=== PATIENT | female | born 1960 | race Caucasian/White ===

== ENCOUNTER 2020-06-16 20:00 | Inpatient (IN) | payer MEDICARE ==
[2020-06-16] MEDS ORDERED: IPRATROPIUM/ALBUTEROL 3 ML NEB INH STA (20:13)
[2020-06-16] MEDS ORDERED: methylPREDNISolone SUCCINATE 125 MG/2 ML VIAL IVP STA (20:19)
--- NOTE | 2020-06-16 20:20 | ED Physician Documentation ---
PD HPI DYSPNEA - Stated complaint Stated Complaint: SOA - Chief complaint Chief Complaint: Resp - History obtained from History obtained from: Patient - Additional information Additional information: 59-year-old woman with "genetic" COPD but also a history of smoking presents with 3 days of increased shortness of breath, productive thick cough at the outset. Now cannot cough. At baseline she wears 3 L of oxygen at home. She also uses Spiriva and nebulizers. She is out of her Advair. She moved from [place] couple of months ago and has not set up primary care here yet. She denies pedal edema or calf pain. Review of Systems Ten Systems: 10 systems reviewed and negative Constitutional: denies: Fever, Chills Nose: denies: Rhinorrhea / runny nose, Congestion Throat: denies: Sore throat Cardiac: reports: Chest pain / pressure PD PAST MEDICAL HISTORY - Allergies Allergies/Adverse Reactions: Allergies Allergy/AdvReac Type Severity Reaction Status Date / Time No Known Drug Allergies Allergy Verified 06/16/20 20:03 PD ED PE NORMAL - Vitals Vital signs reviewed: Yes - General General: Alert and oriented X 3, Other (She appears breathless and tachypneic, she is breathing faster than the documented nursing notes of a respiratory rate of 20. Her sats are better than they were at triage.) - HEENT HEENT: PERRL, EOMI - Neck Neck: Supple, no meningeal sign, No bony TTP - Cardiac Cardiac: RRR, No murmur - Respiratory Respiratory: Other (Rhonchorous and wheezy throughout with moderate air motion and some tachypnea) - Abdomen Abdomen: Soft, Non tender - Back Back: No CVA TTP, No spinal TTP - Derm Derm: Normal color, Warm and dry - Extremities Extremities: No edema, No calf tenderness / cord - Neuro Neuro: Alert and oriented X 3, Normal speech Results - Vitals Vitals: Vital Signs - 24 hr 06/16/20 06/16/20 06/16/20 20:03 20:19 20:23 Temperature 36.5 C Heart Rate 61 115 H 116 H Respiratory 20 21 23 Rate Blood Pressure 150/100 H 147/102 H O2 Saturation 87 L 88 L 06/16/20 06/16/20 06/16/20 20:44 20:49 21:16 Temperature Heart Rate 115 H 117 H Respiratory 27 H 23 Rate Blood Pressure 138/102 H O2 Saturation 99 94 06/16/20 21:30 Temperature Heart Rate 116 H Respiratory 21 Rate Blood Pressure 130/106 H O2 Saturation 94 Oxygen O2 Source Nasal cannula Oxygen Flow Rate 6 - EKG (time done) 2022 Rate: Rate (enter#) (114) Rhythm: Sinus tachycardia [place]: Normal Intervals: Normal [place] Ischemia: Q waves (anterior), Non specific changes (inf/lat STD). No: ST elevation c/w ischemia Computer interpretation: Agree with computer - Labs Labs: Laboratory Tests 06/16/20 06/16/20 06/16/20 20:10 20:10 20:10 WBC 16.7 H RBC 4.99 Hgb 16.2 H Hct 49.6 H MCV 99.4 H MCH 32.5 H MCHC 32.7 RDW 12.6 Plt Count 492 H MPV 9.0 Neut # (Auto) 11.8 H Lymph # (Auto) 3.0 [place] # (Auto) 0.8 Eos # (Auto) 0.8 H Baso # (Auto) 0.2 H Absolute Nucleated RBC 0.00 Nucleated RBC % 0.0 Sodium Potassium Chloride Carbon Dioxide Anion Gap BUN Creatinine Estimated GFR (MDRD) Glucose Lactic Acid 1.1 Calcium Troponin I High Sens B-Natriuretic Peptide 30 Nasal Adenovirus (PCR) Nasal B. parapertussis DNA (PCR) Nasal Coronavir 229E PCR Nasal Coronavir HKU1 PCR Nasal Coronavir NL63 PCR Nasal Coronavir OC43 PCR Nasal Enterovir/Rhinovir PCR Nasal Influenza B PCR Nasal Influenza A PCR Nasal Parainfluen 1 PCR Nasal Parainfluen 2 PCR Nasal Parainfluen 3 PCR Nasal Parainfluen 4 PCR Nasal RSV (PCR) Nasal B.pertussis DNA PCR Nasal C.pneumoniae (PCR) Zeeshan Human Metapneumo PCR Nasal M.pneumoniae (PCR) Nasal SARS-CoV-2 (PCR) 06/16/20 06/16/20 06/16/20 20:10 20:10 21:05 WBC RBC Hgb Hct MCV MCH MCHC RDW Plt Count MPV Neut # (Auto) Lymph # (Auto) [place] # (Auto) Eos # (Auto) Baso # (Auto) Absolute Nucleated RBC Nucleated RBC % Sodium 138 Potassium 4.4 Chloride 97 L Carbon Dioxide 28 Anion Gap 13.0 BUN 10 Creatinine 0.6 Estimated GFR (MDRD) 102 Glucose 132 H Lactic Acid Calcium 9.8 Troponin I High Sens 6.4 B-Natriuretic Peptide Nasal Adenovirus (PCR) NOT DETECTED Nasal B. parapertussis DNA (PCR) NOT DETECTED Nasal Coronavir 229E PCR NOT DETECTED Nasal Coronavir HKU1 PCR NOT DETECTED Nasal Coronavir NL63 PCR NOT DETECTED Nasal Coronavir OC43 PCR NOT DETECTED Nasal Enterovir/Rhinovir PCR NOT DETECTED Nasal Influenza B PCR NOT DETECTED Nasal Influenza A PCR NOT DETECTED Nasal Parainfluen 1 PCR NOT DETECTED Nasal Parainfluen 2 PCR NOT DETECTED Nasal Parainfluen 3 PCR NOT DETECTED Nasal Parainfluen 4 PCR NOT DETECTED Nasal RSV (PCR) NOT DETECTED Nasal B.pertussis DNA PCR NOT DETECTED Nasal C.pneumoniae (PCR) NOT DETECTED Zeeshan Human Metapneumo PCR NOT DETECTED Nasal M.pneumoniae (PCR) NOT DETECTED Nasal SARS-CoV-2 (PCR) NOT DETECTED PD MEDICAL DECISION MAKING - ED course ED course: [employer] respiratory panel ordered to rapidly test specifically for COVID-19 in this patient who is expected to be hospitalized. Woman with COPD presents with an exacerbation of same. She is treated with serial nebs here, steroids. She improved somewhat but still appeared fairly breathless, tachycardic. Intermittently hypoxemic on increased oxygen over her baseline and Dr. Smith will admit. Departure - Departure Disposition: 66 [facility] DC/Xfer Clinical Impression: COPD exacerbation, Hypoxemia Condition: Serious
[2020-06-16 20:22] LABS: BASOPHILS # (AUTO) 0.2 10^3/uL (0.0-0.1); EOSINOPHILS # (AUTO) 0.8 10^3/uL (0.0-0.7); EOSINOPHILS % (AUTO) 4.7 %; HGB - HEMOGLOBIN 16.2 g/dL (12.0-16.0); LYMPHOCYTES % (AUTO) 18.3 %; MEAN CORPUSCULAR HEMOGLOBIN 32.5 pg (27.0-31.0); MEAN CORPUSCULAR HGB CONC 32.7 g/dL (32.0-36.0); MEAN CORPUSCULAR VOLUME 99.4 fL (81.0-99.0); MONOCYTES # (AUTO) 0.8 10^3/uL (0.0-1.0); MONOCYTES % (AUTO) 4.9 %; NEUTROPHILS # (AUTO) 11.8 10^3/uL (1.5-6.6); NEUTROPHILS % (AUTO) 70.7 %; PLT - PLATELET COUNT 492 10^3/uL (130-450); RED BLOOD COUNT 4.99 10^6/uL (4.20-5.40); RED CELL DISTRIBUTION WIDTH 12.6 % (12.0-15.0); WHITE BLOOD COUNT 16.7 x10^3/uL (4.8-10.8)
[2020-06-16] MEDS ORDERED: LEVALBUTEROL 1.25 MG/3 ML NEB INH STA (20:33)
--- NOTE | 2020-06-16 21:27 | XRAY Report ---
PROCEDURE: Chest 1 View X-Ray INDICATIONS: dyspnea TECHNIQUE: One view of the chest was acquired. COMPARISON: None. FINDINGS: Surgical changes and devices: None. Lungs and pleura: No pleural effusions or pneumothorax. Lungs are clear. Mediastinum: Prominent right hilum. Heart size is normal. Bones and chest wall: No suspicious bony lesions. Overlying soft tissues appear unremarkable. IMPRESSION: 1. No acute cardiopulmonary disease. 2. Prominent right hilum may be secondary to confluent central pulmonary vasculature, but right hilar adenopathy cannot be ruled out. A chest CT with contrast is suggested for follow-up. Reviewed by: Angelika Jordan MD on 06/16/2020 9:26 PM PST Approved by: Angelika Jordan MD on 06/16/2020 9:26 PM PST Station ID: [id number]
[2020-06-16] MEDS ORDERED: cefTRIAXone 1 GM VIAL IVP STA (21:35)
[2020-06-16] MEDS ORDERED: ACETAMINOPHEN 325 MG TABLET PO PRN (21:37)
[2020-06-16 21:50] LABS: CALCIUM 9.8 mg/dL (8.5-10.3); CREATININE 0.6 mg/dL (0.4-1.0)
[2020-06-16] MEDS ORDERED: IOVERSOL 320 100 ML VIAL IVP ONE ×2 (21:55→22:36)
--- NOTE | 2020-06-16 21:56 | HISTORY & PHYSICAL EXAMINATION ---
Chief Complaint - Chief Complaint Chief Complaint: cough, dyspnea History of Present Illness - Admitted From Admitted From:: [facility] ED - History Obtained From Records Reviewed: yes History obtained from: patient - History of Present Illness HPI Comment/Other: Patient is a 59-year-old female with medical history significant for alpha 1 antitrypsin, COPD, anxiety who presented to the ED with complaint of dyspnea which has been going on for the past 3 days. She checked her oxygen saturation at home and noted that it was 80 so she was brought and by her for evaluation and treatment. The patient is normally on 3 L of oxygen via nasal cannula at home. In the ED she required 6 L of oxygen to maintain her oxygen saturation at 88%. She was also tachypneic and tachycardic upon presentation. She was given 3 doses of breathing treatment and Solu-Medrol with little improvement. She and her recently moved to [facility] from [place] about 3 months ago. She ran out of her medications and has not been able to fill them because she has not yet established with a primary care physician in the area. She quit smoking but reported a history of about half a pack a day for 40+ years. She denied chest pain, abdominal pain, nausea, vomiting, fever or chills. However she has significant tightness/restriction to air movement and a significant wheeze History - Past Medical History Respiratory: reports: Asthma, COPD, Emphysema Psych: reports: Anxiety MRSA Hx?: No - Past Surgical History Ortho: reports: Hip replacement (right), Other - Family & Social History Family History Comment/Other: She has 3 sisters who all have asthma Living arrangement: At home Living Situation: With spouse/s.o. Social History Notes: Patient and her spouse recently moved to [facility] from [place] 3 months ago. She quit smoking but has 40+ year history of smoking half a pack per day. She rarely consumes alcohol and does not use any recreational substances. She is dependent for activities of daily living and gets around in the wheelchair since right hip fracture on January 23, 2020. - POLST Patient has POLST: No POLST Status: Full Code Meds/Allgy - Allergies Allergies/Adverse Reactions: Allergies Allergy/AdvReac Type Severity Reaction Status Date / Time No Known Drug Allergies Allergy Verified 06/16/20 20:03 Review of Systems - Constitutional Constitutional: denies: Fever, Chills, Weakness - Eyes Eyes: denies: Pain, Irritation, Vision loss - Ears, Nose & Throat Ears, Nose & Throat: denies: Sore throat - Cardiovascular Cariovascular: denies: Irregular heart rate, Chest pain, Edema, Lightheadedness, Syncope - Respiratory Respiratory: reports: Cough, Sputum production, Wheezing, SOB at rest - Gastrointestinal Gastrointestinal: denies: Abdominal pain, Abdominal distention, Constipation, Nausea, Vomiting, Reflux/heartburn - Genitourinary Genitourinary: denies: Dysuria, Frequency, Urgency, Hematuria - Musculoskeletal Musculoskeletal: denies: Muscle pain, Back pain, Muscle aches - Integumentary Integumentary: denies: Rash, Pruritis - Neurological Neurological: denies: General weakness, Focal weakness, Headache, Dizziness - Psychiatric Psychiatric: denies: Depression, Anxiety - Endocrine Endocrine: denies: Polyuria, Polydypsia - Hematologic/Lymphatic Hematologic/Lymphatic: denies: Anemia, Bruising, Petechiae Prior Level of Functionality: She is dependent for activities of daily living and gets around in the wheelchair since right hip fracture on January 23, 2020. Exam - Vital Signs Vital Signs: Vital Signs x48h Temp Pulse Resp BP Pulse Ox 06/16/20 21:16 94 06/16/20 20:49 117 H 23 138/102 H 99 06/16/20 20:44 115 H 27 H 06/16/20 20:23 116 H 23 06/16/20 20:19 115 H 21 147/102 H 88 L 06/16/20 20:03 36.5 C 61 20 150/100 H 87 L - Physical Exam General Appearance: positive: Alert, Mild distress Eyes Bilateral: positive: PERRL, EOMI ENT: positive: No signs of dehydration Neck: positive: No JVD, Trachea midline Respiratory: positive: Wheezes, Other (decreased air movement) Cardiovascular: positive: No murmur, Tachycardia Abdomen: positive: Non-tender, No organomegaly, Nml bowel sounds, No distention. negative: Guarding, Rebound Back: positive: Nml inspection Skin: positive: Color nml, No rash, Warm, Dry Extremities: positive: Non-tender, Full ROM, Nml appearance, No pedal edema Neurologic/Psychiatric: positive: Oriented x3 Conclusion/Plan - Problem List (1) COPD exacerbation Conclusion/Plan: Patient was given 3 breathing treatments in the ED. Patient also received Solu-Medrol 125 mg IV in the ED. We will continue Solu-Medrol 40 mg IV 3 times daily. DuoNeb every 4 hours as needed. Continue supplemental oxygen. Patient was given a dose of Rocephin in the ED. Azithromycin 500 mg IV daily x3 days. Covid 19 test pending. Due to prominent right hilum for which a right hilar adenopathy could not be ruled out and patient's history of smoking a CT of the chest with contrast has been ordered and is pending. (2) Leukocytosis Conclusion/Plan: Reactive versus infectious. Given that patient's white blood cell count was 16, patient was given a dose of Rocephin 1 g IV x1 in the ED. Azithromycin 500 mg IV daily x3 days ordered. Blood cultures pending. (3) Anxiety Conclusion/Plan: Ativan 0.5 mg p.o. every 6 hours as needed ordered - Lab Results Fish Bones: 06/16/20 20:10 06/16/20 20:10 Core Measures - Anticipated LOS I expect patient to be DC'd or transferred within 96 hours.: Yes - DVT/VTE - Prophylaxis VTE/DVT Device ordered at admit?: Yes VTE/DVT Prophylaxis med ordered at admit?: Yes
[2020-06-16 22:17] LABS: C. PNEUMONIAE- RESP PCR PANEL NOT DETECTED
[2020-06-17] MEDS: AZITHROMYCIN INJ 500 MG in SODIUM CHLORIDE 0.9% 250 ML IV SCH ×2 (00:34→08:18)
[2020-06-17] MEDS: SODIUM CHLORIDE FLUSH 0.9% 10 ML SYRINGE IVP SCH ×3 (00:34→21:45)
[2020-06-17] MEDS ORDERED: SODIUM CHLORIDE 0.9% 500 ML IV ONE (00:37)
[2020-06-17] MEDS: IPRATROPIUM/ALBUTEROL 3 ML NEB INH PRN ×2 (00:51→03:58)
[2020-06-17] MEDS: LORazepam 0.5 MG TABLET PO PRN ×3 (02:00→21:44)
[2020-06-17] MEDS: methylPREDNISolone SUCCINATE 40 MG/ML VIAL IVP SCH ×4 (03:02→21:44)
[2020-06-17] MEDS: MORPHINE 2 MG/ML CARPUJECT IVP PRN ×3 (03:34→22:32)
[2020-06-17] MEDS: SODIUM CHLORIDE FLUSH 0.9% 10 ML SYRINGE IVP PRN ×2 (03:35→06:21)
[2020-06-17 04:58] LABS: BASOPHILS % (AUTO) 0.3 %; EOSINOPHILS % (AUTO) 0.3 %; HGB - HEMOGLOBIN 13.8 g/dL (12.0-16.0); LYMPHOCYTES # (AUTO) 0.8 10^3/uL (1.5-3.5); LYMPHOCYTES % (AUTO) 19.5 %; MEAN CORPUSCULAR HEMOGLOBIN 31.7 pg (27.0-31.0); MEAN CORPUSCULAR HGB CONC 32.9 g/dL (32.0-36.0); MEAN CORPUSCULAR VOLUME 96.3 fL (81.0-99.0); MONOCYTES # (AUTO) 0.1 10^3/uL (0.0-1.0); MONOCYTES % (AUTO) 2.3 %; NEUTROPHILS # (AUTO) 3.1 10^3/uL (1.5-6.6); NEUTROPHILS % (AUTO) 77.3 %; PLT - PLATELET COUNT 361 10^3/uL (130-450); RED BLOOD COUNT 4.36 10^6/uL (4.20-5.40); RED CELL DISTRIBUTION WIDTH 12.5 % (12.0-15.0)
[2020-06-17 05:03] LABS: CALCIUM 9.8 mg/dL (8.5-10.3); CREATININE 0.5 mg/dL (0.4-1.0)
[2020-06-17] MEDS: PANTOPRAZOLE 40 MG TABLET PO SCH (06:20)
[2020-06-17] MEDS: BUDESONIDE 0.5 MG/2 ML NEB INH SCH ×2 (07:33→18:55)
[2020-06-17] MEDS: IPRATROPIUM/ALBUTEROL 3 ML NEB INH SCH ×4 (07:33→18:55)
[2020-06-17] MEDS: FORMOTEROL FUMARATE NEB 20 MCG/2 ML INH SCH ×2 (07:33→18:55)
[2020-06-17] MEDS: guaiFENesin 600 MG TABLET PO SCH ×2 (08:05→21:44)
[2020-06-17] MEDS: ENOXAPARIN 40 MG/0.4 ML SYRINGE SUBQ SCH (08:05)
[2020-06-17] MEDS ORDERED: SODIUM CHLORIDE 0.9% 250 ML IV ONE (08:23)
--- NOTE | 2020-06-17 08:37 | CT Report ---
PROCEDURE: CHEST W INDICATIONS: right hilar mass, dyspnea CONTRAST: IV CONTRAST: Optiray 320 ml: 100 PO CONTRAST: *NO PO CONTRAST TECHNIQUE: After the administration of intravenous contrast, 5 mm thick sections acquired from the pulmonary api oziel to the posterior costophrenic angles. 7 mm thick coronal MIP reformats were acquired. For radia tion dose reduction, the following was used: automated exposure control, adjustment of mA and/or kV according to patient size. COMPARISON: None. FINDINGS: Image quality: Excellent. Lungs and pleura: No acute air space opacities. Lung volumes are large, emphysema may be present. N o pleural effusions or pneumothorax. Central and peripheral airways are patent and normal in caliber . Mediastinum: Heart size is normal. No pericardial effusion. No mediastinal or hilar adenopathy by size criteria. Thoracic aorta and central pulmonary arteries are normal in size. Esophagus is yvette l in caliber. No hiatal hernia. Bones and chest wall: No suspicious bony lesions. No vertebral body compression fractures. No axil poonam or supraclavicular adenopathy by size criteria. Thyroid gland appears normal. Abdomen: Visualized upper abdominal solid organs appear normal except for presence of a single perip herally calcified moderate-sized gallstone within the gallbladder lumen.. Upper abdominal bowel loop s are normal in caliber. IMPRESSION: No pulmonary embolus or pneumonia found. Large lung volumes, suspect COPD. Single moderate sized tello pherally calcified gallstone within the gallbladder lumen, without evidence of acute gallbladder infl ammation or adjacent biliary obstruction. Reviewed by: Saman Landa MD on 06/17/2020 8:36 AM PST Approved by: Saman Landa MD on 06/17/2020 8:36 AM PST Station ID: [id number]
[2020-06-17] MEDS ORDERED: guaiFENesin/CODEINE 5 ML UDC PO PRN (10:40)
--- NOTE | 2020-06-17 14:47 | PHARMACY PROGRESS NOTE ---
- Best Possible Medication History Admit Date and Time: 06/16/202136 Processed by: Pharmacy Medication History completed: Yes Patient Interview: Completed Secondary Source(s): Physician records, Pharmacy records, Insurance records (PATIENT INTERVIEWED BY PHARMACY. PATIENT ABLE TO CONFIRM SOME HOME MEDICATIONS. PATIENT UNSURE OF CLONIDINE AND ATIVAN DOSE. ) As the person ultimately responsible for medication therapy, providers are able to order a medication from an existing home medication list in [facility] via the "Reconcile Routine" prior to Confirmation of that medication by contracting support specialist. Such practice is discouraged except when the physician, in their clinical judgment, deems that a medical need exists for a medication without regard to previous use.
--- NOTE | 2020-06-17 18:21 | PROVIDER PROGRESS NOTE ---
Assessment/Plan - Problem List (1) COPD exacerbation Assessment/Plan: She is improving rapidly. Continue with nebs, steroids, supplemental oxygen. Her O2 setting is already down to her baseline of 3 L continuously. If she is discharged tomorrow, she will need an oximetry walk test to determine if 3 L as the setting at rest and with activity or if it needs to be increased with activity. The patient is eager to be discharged tomorrow because she has her appointment with her PCP for the first time on Wednesday morning at 0900. (2) [id number] deficiency Assessment/Plan: As per history. She was on infusions for about 1 year, 10 years ago. After that her insurance would not cover the infusions and she could not pay for the very expense [id number] cost. 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 The boyfriend however had left the building and now has been let back in. I let him and the pt know know that he cannot go in and out. He will now leave "to do banking" and he knows he does not have permission to return. Patient understands this and thinks her anxiety is under control. - Current Meds Current Meds: Current Medications Generic Name Dose Route Start Last Admin Trade Name Freq PRN Reason Stop Dose Admin Albuterol/Ipratropium 3 ml 06/16/20 21:40 06/17/20 03:58 Ipratropium/Albuterol 3 Ml Neb INH 3 ml Q4HR PRN Administration Wheezing Albuterol/Ipratropium 3 ml 06/17/20 07:00 06/17/20 15:12 Ipratropium/Albuterol 3 Ml Neb INH 3 ml RTQID JENNIFER Administration Budesonide 0.5 mg 06/17/20 07:00 06/17/20 07:33 Budesonide 0.5 Mg/2 Ml Neb INH 0.5 mg RTBID JENNIFER Administration Enoxaparin Sodium 40 mg 06/17/20 09:00 06/17/20 08:05 Enoxaparin 40 Mg/0.4 Ml Syringe SUBQ 40 mg DAILY JENNIFER Administration Formoterol Fumarate 20 mcg 06/17/20 07:00 06/17/20 07:33 Formoterol Fumarate Neb 20 Mcg/2 Ml INH 20 mcg RTBID JENNIFER Administration Guaifenesin 600 mg 06/17/20 09:00 06/17/20 08:05 Guaifenesin 600 Mg Tablet PO 600 mg BID JENNIFER Administration Azithromycin 500 mg/ Sodium 250 mls @ 250 mls/hr 06/16/20 21:42 06/17/20 10:40 Chloride IV 06/18/20 09:59 Infused DAILY JENNIFER Infusion Lorazepam 0.5 mg 06/16/20 23:43 06/17/20 08:05 Lorazepam 0.5 Mg Tablet PO 0.5 mg Q6H PRN Administration Anxiety Methylprednisolone 40 mg 06/16/20 22:00 06/17/20 13:41 Methylprednisolone Succinate 40 Mg/Ml Vial IVP 40 mg TID JENNIFER Administration Morphine Sulfate 2 mg 06/17/20 00:56 06/17/20 11:48 Morphine 2 Mg/Ml Carpuject IVP 2 mg Q4HR PRN Administration Dyspnea Pantoprazole Sodium 40 mg 06/17/20 07:00 06/17/20 06:20 Pantoprazole 40 Mg Tablet PO 40 mg QDAC JENNIFER Administration Sodium Chloride 10 ml 06/16/20 21:37 06/17/20 06:21 Sodium Chloride Flush 0.9% 10 Ml Syringe IVP 10 ml PRN PRN Administration NEEDED PER PROVIDER ORDERS Sodium Chloride 10 ml 06/17/20 01:00 06/17/20 08:19 Sodium Chloride Flush 0.9% 10 Ml Syringe IVP 10 ml 0100,0900,1700 JENNIFER Administration - Lab Result Fish Bone Diagrams: 06/17/20 04:46 06/17/20 04:46 - Additional Planning My Orders: My Active Orders 06/17/20 Evaluate and Treat OT [OT] Routine Evaluate and Treat PT [PT] Routine 06/17/20 10:40 guaiFENesin/CODEINE [Robitussin AC] 5 ml PO Q6HR PRN Subjective - Subjective Patient Reports: Feeling Better, Shortness of Breath (She was short of breath with activity but no longer short of breath at rest) Objective Vital Signs: Vital Signs - 24 hr 0106/16/20 06/16/20 20:03 20:19 20:23 Temperature 36.5 C Heart Rate 61 115 H 116 H Heart Rate [ Brachial] Heart Rate [ Sitting] Heart Rate [ Supine] Respiratory 20 21 23 Rate Blood Pressure 150/100 H 147/102 H Blood Pressure [Right Brachial artery] Blood Pressure [Sitting] Blood Pressure [Supine] O2 Saturation 87 L 88 L 06/16/20 06/16/20 06/16/20 20:44 20:49 21:16 Temperature Heart Rate 115 H 117 H Heart Rate [ Brachial] Heart Rate [ Sitting] Heart Rate [ Supine] Respiratory 27 H 23 Rate Blood Pressure 138/102 H Blood Pressure [Right Brachial artery] Blood Pressure [Sitting] Blood Pressure [Supine] O2 Saturation 99 94 06/16/20 06/16/20 06/16/20 21:30 21:54 22:00 Temperature 36.5 C Heart Rate 116 H 124 H 123 H Heart Rate [ Brachial] Heart Rate [ Sitting] Heart Rate [ Supine] Respiratory 21 23 27 H Rate Blood Pressure 130/106 H 130/101 H 133/106 H Blood Pressure [Right Brachial artery] Blood Pressure [Sitting] Blood Pressure [Supine] O2 Saturation 94 91 L 93 06/16/20 06/16/20 06/17/20 22:40 23:00 00:55 Temperature 37.0 C 36.4 C L 36.4 C L Heart Rate 110 H 105 H Heart Rate [ 110 H Brachial] Heart Rate [ Sitting] Heart Rate [ Supine] Respiratory 26 H 24 20 Rate Blood Pressure 127/89 H Blood Pressure 123/92 H [Right Brachial artery] Blood Pressure [Sitting] Blood Pressure [Supine] O2 Saturation 98 94 95 06/17/20 06/17/20 06/17/20 04:00 04:09 07:45 Temperature 36.6 C Heart Rate 94 90 Heart Rate [ 95 Brachial] Heart Rate [ Sitting] Heart Rate [ Supine] Respiratory 18 24 18 Rate Blood Pressure Blood Pressure 112/67 [Right Brachial artery] Blood Pressure [Sitting] Blood Pressure [Supine] O2 Saturation 95 06/17/20 06/17/20 06/17/20 07:54 11:40 11:47 Temperature 97.2 C H 36.8 C Heart Rate 88 Heart Rate [ 86 84 Brachial] Heart Rate [ Sitting] Heart Rate [ Supine] Respiratory 22 22 18 Rate Blood Pressure Blood Pressure 117/73 108/76 [Right Brachial artery] Blood Pressure [Sitting] Blood Pressure [Supine] O2 Saturation 94 96 06/17/20 06/17/20 06/17/20 12:20 12:25 15:17 Temperature Heart Rate 92 Heart Rate [ Brachial] Heart Rate [ 99 99 Sitting] Heart Rate [ 96 96 Supine] Respiratory 18 Rate Blood Pressure Blood Pressure [Right Brachial artery] Blood Pressure 106/79 106/79 [Sitting] Blood Pressure 111/73 111/73 [Supine] O2 Saturation 06/17/20 16:42 Temperature 36.5 C Heart Rate Heart Rate [ 89 Brachial] Heart Rate [ Sitting] Heart Rate [ Supine] Respiratory 24 Rate Blood Pressure Blood Pressure 110/69 [Right Brachial artery] Blood Pressure [Sitting] Blood Pressure [Supine] O2 Saturation 94 Oxygen O2 Source Nasal cannula Oxygen Flow Rate 6 I&O (Last 24 Hrs): Intake and Output Totals x24h 06/15/20 06/16/20 06/17/20 23:59 23:59 23:59 Intake Total 1940 Output Total 200 Balance 1740 General: Alert, Oriented x3 HEENT: EOMI, Mucous membr. moist/pink, Other (Mostly edentulous. Wearing O2 per nasal cannula) Neck: Supple, No JVD Neuro: Alert, Non Focal Cardiovascular: Regular rate, Normal S1, Normal S2, No murmurs Respiratory: No respiratory distress, Wheezes, Other (Prolonged expiratory phase) Abdomen: Normal bowel sounds, Soft Extremities: No edema - Results Results: Laboratory Results WBC 4.0 x10^3/uL (4.8-10.8) L 06/17/20 04:46 RBC 4.36 10^6/uL (4.20-5.40) 06/17/20 04:46 Hgb 13.8 g/dL (12.0-16.0) 06/17/20 04:46 Hct 42.0 % (37.0-47.0) 06/17/20 04:46 MCV 96.3 fL (81.0-99.0) 06/17/20 04:46 MCH 31.7 pg (27.0-31.0) H 06/17/20 04:46 MCHC 32.9 g/dL (32.0-36.0) 06/17/20 04:46 RDW 12.5 % (12.0-15.0) 06/17/20 04:46 Plt Count 361 10^3/uL (130-450) 06/17/20 04:46 MPV 9.0 fL (7.9-10.8) 06/17/20 04:46 Neut # (Auto) 3.1 10^3/uL (1.5-6.6) 06/17/20 04:46 Lymph # (Auto) 0.8 10^3/uL (1.5-3.5) L 06/17/20 04:46 [place] # (Auto) 0.1 10^3/uL (0.0-1.0) 06/17/20 04:46 Eos # (Auto) 0.0 10^3/uL (0.0-0.7) 06/17/20 04:46 Baso # (Auto) 0.0 10^3/uL (0.0-0.1) 06/17/20 04:46 Absolute Nucleated RBC 0.00 x10^3/uL 06/17/20 04:46 Nucleated RBC % 0.0 /100WBC 06/17/20 04:46 Sodium 135 mmol/L (135-145) 06/17/20 04:46 Potassium 4.0 mmol/L (3.5-5.0) 06/17/20 04:46 Chloride 100 mmol/L (101-111) L 06/17/20 04:46 Carbon Dioxide 25 mmol/L (21-32) 06/17/20 04:46 Anion Gap 10.0 (6-13) 06/17/20 04:46 BUN 10 mg/dL (6-20) 06/17/20 04:46 Creatinine 0.5 mg/dL (0.4-1.0) 06/17/20 04:46 Estimated GFR (MDRD) 125 (>89) 06/17/20 04:46 Glucose 128 mg/dL (70-100) H 06/17/20 04:46 Lactic Acid 1.1 mmol/L (0.5-2.2) 06/16/20 20:10 Calcium 9.8 mg/dL (8.5-10.3) 06/17/20 04:46 Troponin I High Sens 6.4 ng/L (2.3-14.8) 06/16/20 20:10 B-Natriuretic Peptide 30 pg/mL (5-100) 06/16/20 20:10 Nasal Adenovirus (PCR) NOT DETECTED 06/16/20 21:05 Nasal B. parapertussis DNA (PCR) NOT DETECTED 06/16/20 21:05 Nasal Coronavir 229E PCR NOT DETECTED 06/16/20 21:05 Nasal Coronavir HKU1 PCR NOT DETECTED 06/16/20 21:05 Nasal Coronavir NL63 PCR NOT DETECTED 06/16/20 21:05 Nasal Coronavir OC43 PCR NOT DETECTED 06/16/20 21:05 Nasal Enterovir/Rhinovir PCR NOT DETECTED 06/16/20 21:05 Nasal Influenza B PCR NOT DETECTED 06/16/20 21:05 Nasal Influenza A PCR NOT DETECTED 06/16/20 21:05 Nasal Parainfluen 1 PCR NOT DETECTED 06/16/20 21:05 Nasal Parainfluen 2 PCR NOT DETECTED 06/16/20 21:05 Nasal Parainfluen 3 PCR NOT DETECTED 06/16/20 21:05 Nasal Parainfluen 4 PCR NOT DETECTED 06/16/20 21:05 Nasal RSV (PCR) NOT DETECTED 06/16/20 21:05 Nasal B.pertussis DNA PCR NOT DETECTED 06/16/20 21:05 Nasal C.pneumoniae (PCR) NOT DETECTED 06/16/20 21:05 Zeeshan Human Metapneumo PCR NOT DETECTED 06/16/20 21:05 Nasal M.pneumoniae (PCR) NOT DETECTED 06/16/20 21:05 Nasal SARS-CoV-2 (PCR) NOT DETECTED 06/16/20 21:05
[2020-06-18] MEDS: SODIUM CHLORIDE FLUSH 0.9% 10 ML SYRINGE IVP SCH ×2 (00:46→06:01)
[2020-06-18 05:49] LABS: BASOPHILS % (AUTO) 0.2 %; HGB - HEMOGLOBIN 13.1 g/dL (12.0-16.0); LYMPHOCYTES # (AUTO) 1.6 10^3/uL (1.5-3.5); LYMPHOCYTES % (AUTO) 23.9 %; MEAN CORPUSCULAR HEMOGLOBIN 32.4 pg (27.0-31.0); MEAN CORPUSCULAR HGB CONC 33.6 g/dL (32.0-36.0); MEAN CORPUSCULAR VOLUME 96.5 fL (81.0-99.0); MEAN PLATELET VOLUME 9.1 fL (7.9-10.8); MONOCYTES # (AUTO) 0.4 10^3/uL (0.0-1.0); MONOCYTES % (AUTO) 5.4 %; NEUTROPHILS # (AUTO) 4.6 10^3/uL (1.5-6.6); NEUTROPHILS % (AUTO) 70.2 %; PLT - PLATELET COUNT 331 10^3/uL (130-450); RED BLOOD COUNT 4.04 10^6/uL (4.20-5.40); RED CELL DISTRIBUTION WIDTH 12.8 % (12.0-15.0); WHITE BLOOD COUNT 6.5 x10^3/uL (4.8-10.8)
[2020-06-18 05:59] LABS: CREATININE 0.5 mg/dL (0.4-1.0)
[2020-06-18] MEDS: methylPREDNISolone SUCCINATE 40 MG/ML VIAL IVP SCH (06:01)
[2020-06-18] MEDS: PANTOPRAZOLE 40 MG TABLET PO SCH (06:01)
[2020-06-18] MEDS: IPRATROPIUM/ALBUTEROL 3 ML NEB INH SCH ×2 (06:28→11:40)
[2020-06-18] MEDS: FORMOTEROL FUMARATE NEB 20 MCG/2 ML INH SCH (06:28)
[2020-06-18] MEDS: BUDESONIDE 0.5 MG/2 ML NEB INH SCH (06:28)
[2020-06-18] MEDS: guaiFENesin 600 MG TABLET PO SCH (09:56)
[2020-06-18] MEDS: AZITHROMYCIN INJ 500 MG in SODIUM CHLORIDE 0.9% 250 ML IV SCH (09:57)
[2020-06-18] MEDS: ENOXAPARIN 40 MG/0.4 ML SYRINGE SUBQ SCH (09:58)
--- NOTE | 2020-06-18 11:16 | Discharge Plan ---
Discharge Plan Problem Reviewed?: Yes Disposition: Home, Self Care Condition: Fair Prescriptions: LORazepam [Ativan] 0.5 mg PO DAILY PRN #30 tab PRN Reason: Anxiety cloNIDine [Catapres] 0.1 mg PO DAILY PRN #30 tab PRN Reason: Anxiety predniSONE [Deltasone] 20 mg PO DAILY #100 tab Fluticasone 110 Mcg [Flovent] 1 puffs INH DAILY #1 gm Esomeprazole Magnesium [Nexium] 40 mg PO DAILY #30 cap Albuterol Sulfate [Proair Hfa Inhaler] 2 puffs INH Q6H PRN #2 gm PRN Reason: Shortness Of Air/Wheezing Diet: Regular Activity Restrictions: Activity as Tolerated Shower Restrictions: No Driving Restrictions: No Health Concerns: You have a long history of COPD and you are already on 3 L of oxygen at home. You presented to our emergency room with 3 days of cough, shortness of breath and your oxygen saturations were quite low. In spite of getting nebulizers and steroids in the emergency room you got worse, and as such she placed in the hospital to treat. You shared with us that you have actually run out of your medications and moving from [place] to here. We discussed which pharmacy to send prescriptions to and [place] To our knowledge [facility] is so we have sent you refills to [facility]. Plan of Treatment: 1. You will establish yourself with a primary care provider. You have an appointment tomorrow. 2. I have refilled all of your medications and sent them to [facility] 3. You would be a candidate for cardiopulmonary rehab to help you improve your strength and endurance. I will make that referral and hope to follow through. Care Goals: To not come into the hospital or into the emergency room and to remain stable with your disease Assessment: Patient will follow through Follow-Up Care: [facility] No Smoking: If you smoke, Please STOP! Call for help.
[2020-06-18 12:15] VITALS: BP 130/77
--- NOTE | 2020-06-18 17:08 | DISCHARGE SUMMARY ---
Discharge Summary Admit Date: 06/16/20 Discharge Date: 06/18/20 Discharging Provider: Nataliya Erazo MD Code Status: Attempt Resuscitation Condition at Discharge: Fair Discharge Disposition: 01 Home, Self Care - DIAGNOSES Discharge Diagnoses with Status of Each Condition: 1. COPD exacerbation 2. Alpha-1 antitrypsin deficiency 3. Leukocytosis 4. Generalized anxiety disorder 5. Noncompliance with medication 6. Left hip pain 7. History of left hip repair January 2020 - HPI History of Present Illness: Patient is a 59-year-old female with medical history significant for alpha 1 antitrypsin, COPD, anxiety who presented to the ED with complaint of dyspnea which has been going on for the past 3 days. She checked her oxygen saturation at home and noted that it was 80 so she was brought and by her for evaluation and treatment. The patient is normally on 3 L of oxygen via nasal cannula at home. In the ED she required 6 L of oxygen to maintain her oxygen saturation at 88%. She was also tachypneic and tachycardic upon presentation. She was given 3 doses of breathing treatment and Solu-Medrol with little improvement. She and her recently moved to [facility] from [place] about 3 months ago. She ran out of her medications and has not been able to fill them because she has not yet established with a primary care physician in the area. She quit smoking but reported a history of about half a pack a day for 40+ years. She denied chest pain, abdominal pain, nausea, vomiting, fever or chills. However she has significant tightness/restriction to air movement and a significant wheeze History - Past Medical History Respiratory: reports: Asthma, COPD, Emphysema Psych: reports: Anxiety MRSA Hx?: No - Past Surgical History Ortho: reports: Hip replacement (right), Other - CONSULTS | PROCEDURES Procedures: 1. Chest x-ray with no acute cardiopulmonary disease. Prominent right hilum secondary to confluence central pulmonary vasculature but right hilar adenopathy could not be ruled out so CT was recommended. 2. CT of chest with no acute airspace opacities. Lung volumes are large with emphysema present. Normal heart size. No hilar adenopathy. Visualized upper abdominal solid organs were normal except for the presence of a single peripherally calcified moderate-sized gallstone. - HOSPITAL COURSE Hospital Course: The patient shared with us that she has been running low on her nebulizers, and metered-dose inhalers. She moved here from [place] 3 months ago. It took her quite a bit of time to find a primary care provider and in the meantime is run out of all of her medications except her inhaled Flovent. She has been without her bronchodilators for probably 3 days. She presented a COPD exacerbation. No pneumonia. She was very anxious and requested that we make sure that we gave her her clonidine and Ativan. After being stabilized on steroids, nebulizers, she felt stable enough to return home. She has a primary care provider visit scheduled for tomorrow. She will be seeing [facility] clinic. Dr. Servando Shcultz. During her stay it was noted that she has been using a wheelchair because of chronic left hip pain. She states that she fell and broke her hip last summer. She has been in a wheelchair, not really ambulating normally since that time because "the surgeon told me to". I spoke to Dr. Dean's office at [facility]. His phone number was [phone]. Unfortunately he was in the OR all day today but his physicians financial planning assistant answer the phone and reviewed the records. The patient fell and broke her hip and had a hip repair. She was seen for her first postoperative visit at the appropriate time where sutures were removed, bandages removed, and she was to be weightbearing as tolerated. She was supposed to be seen again 4 weeks later to get a repeat film and then be cleared. She never kept her follow-up appointment. As such this patient has been almost nonweightbearing without realizing that she had no restrictions. She needed to follow through with physical therapy.I then tried to call her at her home phone that was in our database. It was the wrong phone number. I called [facility] pharmacy in [facility] was able to give me the correct phone number of [phone]. She will need to follow-up with her primary care provider about all of her medicines, and he needs to order a left hip film. He then needs to refer her to orthopedic surgery and follow-up here [place] the [place]. Once orthopedic surgery sees the film, reviewed her case, then she can be released to full weightbearing status depending on his findings. After receiving steroids and nebulizers, she gradually improved. She felt like she was back at baseline. She is usually on 3 L of nasal cannula oxygen at home, was actually down to 2 L by the time of discharge.Greater than 30 minutes was spent coordinating discharge. She feels stable enough to return to home. She is asking that we provide her with refills. I did explain we can give her enough for a few days, and then her primary care provider will give her longer term refills. Discharge exam had a temperature 36.5, pulse 88, blood pressure 130/77, respirations 20 and she is 93% on 3 L. She sometimes goes up to 100% on 3 L. She is a thin woman. 5 foot 6 inches tall and weighing 63.5 kg. Bilateral temporal wasting. Neck is supple, no JVD. Lungs have severe prolonged and exhalation with an occasional faint wheeze at the end of breathing. But no increased respiratory effort, no use of accessory muscles. That is unless she has to get up to walk to the bathroom where she is very tachypneic. It takes her about 3 minutes to stabilize. She feels this is her baseline and is insistent that this is stable for her. PMI is normally placed. She also does have a right ventricular lift. Systolic ejection murmur. Abdomen is nontender, normal bowel sounds. No leg edema. In seeing Dr. Servando Schultz tomorrow: 1. Medications need to be refilled 2. She is on Nexium which is brand name. Please consider changing her to Protonix or Prilosec or stopping it altogether after a taper 3. Refer to cardiopulmonary rehab 4. Check hip film and refer to orthopedics to then allow her to do rehab to get out of the wheelchair and decrease walker use - ALLERGIES Allergies/Adverse Reactions: Allergies Allergy/AdvReac Type Severity Reaction Status Date / Time No Known Drug Allergies Allergy Verified 06/16/20 20:03 - MEDICATIONS Home Medications: Ambulatory Orders Medication Instructions Recorded Confirmed Albuterol Sulfate [Proair Hfa 2 puffs INH Q6H PRN #2 gm 06/18/20 Inhaler] Esomeprazole Magnesium [Nexium] 40 mg PO DAILY #30 cap 06/18/20 Fluticasone 110 Mcg [Flovent] 1 puffs INH DAILY #1 gm 06/18/20 Ipratropium/Albuterol [Duoneb] 3 ml INH RTQID neb 06/18/20 LORazepam [Ativan] 0.5 mg PO DAILY PRN #30 tab 06/18/20 cloNIDine [Catapres] 0.1 mg PO DAILY PRN #30 tab 06/18/20 predniSONE [Deltasone] 20 mg PO DAILY #100 tab 06/18/20 - LABS Result Diagrams: 06/18/20 05:30 06/18/20 05:30
== END 2020-06-18 12:24 | disposition home or self-care (01) | DRG 192 ==
LOC: ED 20:00 → MS2 21:37
PROVIDERS: ADMIT Internal Medicine; ATTEND Specialist
DX: J43.9 Emphysema, unspecified (principal); E88.01 Alpha-1-antitrypsin deficiency; F41.1 Generalized anxiety disorder; D72.829 Elevated white blood cell count, unspecified; M25.552 Pain in left hip; Z74.09 Other reduced mobility; J44.1 Chronic obstructive pulmonary disease with (acute) exacerbation; R09.02 Hypoxemia; Z99.81 Dependence on supplemental oxygen; T48.6X6A Underdosing of antiasthmatics, initial encounter; Y92.009 Unspecified place in unspecified non-institutional (private) residence as the place of occurrence of the external cause; Z91.128 Patient's intentional underdosing of medication regimen for other reason; Z20.828 Contact with and (suspected) exposure to other viral communicable diseases; Z79.51 Long term (current) use of inhaled steroids; Z87.891 Personal history of nicotine dependence
CPT/HCPCS: 36415; 71045; 71260; 80048; 83605; 83880; 84484; 85025; 87040; 87631; 93005; 94640; 96374; 97161; 97165; 99285; A9270; J1650; J7626; Q9967; 0202U

== ENCOUNTER 2021-05-25 10:19 | Emergency (ER) | payer MEDICAID, MEDICARE ==
[2021-05-25] MEDS ORDERED: IPRATROPIUM/ALBUTEROL 3 ML NEB INH ONE (11:46)
[2021-05-25] MEDS ORDERED: IPRATROPIUM/ALBUTEROL 3 ML NEB INH STA (11:46)
--- NOTE | 2021-05-25 12:04 | XRAY Report ---
PROCEDURE: Chest 1 View X-Ray INDICATIONS: SOB TECHNIQUE: One view of the chest was acquired. COMPARISON: 06/16/2020 chest x-ray FINDINGS: Surgical changes and devices: None. Lungs and pleura: No pleural effusions or pneumothorax. Lungs are clear. Mediastinum: Mediastinal contours appear normal. Heart size is normal. Bones and chest wall: No suspicious bony lesions. Overlying soft tissues appear unremarkable. IMPRESSION: No acute process. Reviewed by: Manuel Abdalla MD on 05/25/2021 11:03 AM [facility] Approved by: Manuel Abdalla MD on 05/25/2021 11:03 AM [facility] Station ID: [id number]
[2021-05-25] MEDS ORDERED: DOXYCYCLINE 100 MG TABLET PO STA (12:06)
[2021-05-25] MEDS ORDERED: LEVALBUTEROL 1.25 MG/3 ML NEB INH STA (12:06)
[2021-05-25] MEDS ORDERED: predniSONE 20 MG TABLET PO STA (12:06)
--- NOTE | 2021-05-25 12:08 | ED Physician Documentation ---
PD HPI DYSPNEA - Stated complaint Stated Complaint: CANT BREATHE - Chief complaint Chief Complaint: Resp - History obtained from History obtained from: Patient - Additional information Additional information: 60-year-old woman with history of alpha-1 antitrypsin magnus deficiency causing asthma/COPD presents with an exacerbation starting after getting a cold about a week ago. She had a low-grade fever at the time but not since. She feels like she needs some steroids and is quite short of breath. No recent fevers. Her cough is productive of initially clear now milky sputum. Review of Systems Constitutional: reports: Fever, Fatigue. denies: Chills Nose: reports: Rhinorrhea / runny nose Throat: denies: Sore throat Cardiac: denies: Chest pain / pressure, Palpitations Respiratory: reports: Dyspnea, Cough PD PAST MEDICAL HISTORY - Past Medical History Respiratory: Asthma, COPD, Emphysema : Incontinence Psych: Anxiety - Past Surgical History Past Surgical History: Yes Ortho: Hip replacement, Other - Present Medications Home Medications: Ambulatory Orders Medication Instructions Recorded Confirmed Albuterol Sulfate [Proair Hfa 2 puffs INH Q6H PRN #2 gm 06/18/20 Inhaler] Esomeprazole Magnesium [Nexium] 40 mg PO DAILY #30 cap 06/18/20 Fluticasone 110 Mcg [Flovent] 1 puffs INH DAILY #1 gm 06/18/20 Ipratropium/Albuterol [Duoneb] 3 ml INH RTQID neb 06/18/20 LORazepam [Ativan] 0.5 mg PO DAILY PRN #30 tab 06/18/20 cloNIDine [Catapres] 0.1 mg PO DAILY PRN #30 tab 06/18/20 predniSONE [Deltasone] 20 mg PO DAILY #100 tab 06/18/20 predniSONE [Deltasone] 20 mg PO [id number] #21 tab 05/25/21 predniSONE [Deltasone] 20 mg PO [id number] #21 tab 05/25/21 - Allergies Allergies/Adverse Reactions: Allergies Allergy/AdvReac Type Severity Reaction Status Date / Time No Known Drug Allergies Allergy Verified 05/25/21 10:33 - Social History Does the pt smoke?: No Smoking Status: Never smoker Does the pt have substance abuse?: No - Immunizations Immunizations are current?: Yes - POLST Patient has POLST: No POLST Status: Full Code PD ED PE NORMAL - Vitals Vital signs reviewed: Yes - General General: Alert and oriented X 3, Other (She is tachypneic with labored breathing and speaking in shortened sentences.) - Neck Neck: Supple, no meningeal sign, No bony TTP - Cardiac Cardiac: RRR (Tachycardic), No murmur - Respiratory Respiratory: Other (Tachypneic, breathing and short sentences, moderate air motion with inspiratory and expiratory wheezing.) - Abdomen Abdomen: Soft, Non tender - Back Back: No CVA TTP, No spinal TTP - Derm Derm: Normal color, Warm and dry - Neuro Neuro: Alert and oriented X 3, Normal speech Results - Vitals Vitals: Vital Signs - 24 hr 05/25/21 05/25/21 05/25/21 10:29 10:40 11:47 Temperature 36.5 C Heart Rate 99 99 90 Respiratory 24 26 H 26 H Rate Blood Pressure 137/80 H 137/80 H O2 Saturation 94 100 05/25/21 05/25/21 05/25/21 12:20 12:39 14:00 Temperature Heart Rate 90 105 H 75 Respiratory 22 26 H 18 Rate Blood Pressure 120/88 H 112/80 O2 Saturation 97 99 Oxygen O2 Source Nasal cannula Oxygen Flow Rate 2 PD MEDICAL DECISION MAKING - ED course ED course: 60-year-old woman with alpha-1 antitrypsin magnus associated COPD presents with an exacerbation of same. She was admitted doxycycline, and prednisone here with improvement. Also 3 nebs. She was still a bit labored and I offered admission which she declined. Departure - Departure Disposition: 01 Home, Self Care Clinical Impression: COPD exacerbation, [id number] deficiency Condition: Good Record reviewed to determine appropriate education?: Yes Instructions: COPD Dc Prescriptions: predniSONE [Deltasone] 20 mg PO [id number] #21 tab predniSONE [Deltasone] 20 mg PO [id number] #21 tab Comments: Call your doctor to arrange a follow-up appointment, make the next available appointment. In the interim, return anytime if worse or if new symptoms develop. Discharge Date/Time: 05/25/21 14:27
[2021-05-25] MEDS ORDERED: LEVALBUTEROL 1.25 MG/3 ML NEB INH ONE (12:22)
[2021-05-25 14:07] VITALS: BP 112/80
== END 2021-05-25 14:27 | disposition home or self-care (01) ==
LOC: ED 10:19
DX: J44.1 Chronic obstructive pulmonary disease with (acute) exacerbation (principal); E88.01 Alpha-1-antitrypsin deficiency
CPT/HCPCS: 71045; 94640; 99283; 99284; A9270; J7512

== ENCOUNTER 2022-10-30 00:44 | Outpatient (CLI) | payer MEDICARE | END 2022-10-30 00:45 | disposition left against medical advice (07) | LOC: EMS 00:44 | DX: R09.89 Other specified symptoms and signs involving the circulatory and respiratory systems (principal); R45.89 Other symptoms and signs involving emotional state; R46.89 Other symptoms and signs involving appearance and behavior ==

== ENCOUNTER 2023-04-06 12:22 | Emergency (ER) | payer MEDICARE ==
--- NOTE | 2023-04-06 12:49 | ED Physician Documentation ---
PD HPI DYSPNEA - Stated complaint Stated Complaint: SOA/LEG SWELLING - Chief complaint Chief Complaint: Resp - History obtained from History obtained from: Patient - History of Present Illness Timing - onset: How many weeks ago (2) Timing - onset during: Light activity Timing - duration: Weeks (2 weeks of progressive dyspnea on exertion and activity without orthopnea. Progressive bilateral leg edema from the knees down. No chest pain. Chronic lung disease with wheezing..) Timing - details: Gradual onset, Still present Inciting event(s): No: Out of meds, URI, Immobilization/travel Improved by: Rest. No: Sitting up (feels worse sitting up) Worsened by: No: Laying flat Associated symptoms: Cough, Wheezing, Bilateral edema. No: Fever, Hemoptysis, Chest pain / discomfort, Unilateral edema Similar symptoms before: Diagnosis Review of Systems Constitutional: denies: Fever, Chills PD PAST MEDICAL HISTORY - Past Medical History Cardiovascular: None Respiratory: Asthma, COPD, Emphysema : Incontinence Psych: Anxiety - Past Surgical History Past Surgical History: Yes Ortho: Hip replacement, Other - Present Medications Home Medications: Ambulatory Orders Medication Instructions Recorded Confirmed Albuterol Sulfate [Proair Hfa 2 puffs INH Q6H PRN #2 gm 06/18/20 Inhaler] Esomeprazole Magnesium [Nexium] 40 mg PO DAILY #30 cap 06/18/20 Fluticasone 110 Mcg [Flovent] 1 puffs INH DAILY #1 gm 06/18/20 Ipratropium/Albuterol [Duoneb] 3 ml INH RTQID neb 06/18/20 LORazepam [Ativan] 0.5 mg PO DAILY PRN #30 tab 06/18/20 cloNIDine [Catapres] 0.1 mg PO DAILY PRN #30 tab 06/18/20 Amoxicillin 500 mg PO TID #15 cap 04/06/23 dexAMETHasone [Decadron] 4 mg PO DAILY #10 tablet 04/06/23 hydroCHLOROthiazide [Hydrodiuril] 25 mg PO DAILY #10 tablet 04/06/23 - Allergies Allergies/Adverse Reactions: Allergies Allergy/AdvReac Type Severity Reaction Status Date / Time No Known Drug Allergies Allergy Verified 05/25/21 10:33 - Social History Does the pt smoke?: No Smoking Status: Never smoker Does the pt have substance abuse?: No - Immunizations Immunizations are current?: Yes - POLST Patient has POLST: No POLST Status: Full Code PD ED PE NORMAL - Vitals Vital signs reviewed: Yes - General General: Alert and oriented X 3, No acute distress, Well developed/nourished - HEENT HEENT: Ears normal, Moist mucous membranes, Pharynx benign - Neck Neck: Supple, no meningeal sign, No adenopathy - Cardiac Cardiac: RRR, No murmur - Respiratory Respiratory: No respiratory distress. No: Clear bilaterally (diffuse exp wheezing wihtout accessory muscle use. No crackels. ) - Derm Derm: Normal color, Warm and dry - Extremities Extremities: No calf tenderness / cord, Other (1+ edema in both legs from knees down. NO skin redness nor sores. palpable pulses in DP and posterir tibial areas. ) Results - Vitals Vitals: Oxygen O2 Source Room air - Labs Labs: Laboratory Tests 04/06/23 04/06/23 04/06/23 13:31 13:31 13:31 WBC 3.9 L RBC 4.17 L Hgb 13.3 Hct 42.7 MCV 102.4 H MCH 31.9 H MCHC 31.1 L RDW 12.0 Plt Count 242 MPV 8.9 Neut # (Auto) 3.0 Lymph # (Auto) 0.5 L [place] # (Auto) 0.3 Eos # (Auto) 0.1 Baso # (Auto) 0.0 Absolute Nucleated RBC 0.00 Nucleated RBC % 0.0 Sodium 136 Potassium 5.3 H Chloride 95 L Carbon Dioxide 43 H* Anion Gap -2.0 L BUN 11 Creatinine 0.5 L Estimated GFR (MDRD) 124 Glucose 86 Calcium 9.6 Magnesium 1.7 Total Bilirubin 0.5 AST 18 ALT 14 Alkaline Phosphatase 126 H B-Natriuretic Peptide 161 H Total Protein 7.0 Albumin 3.9 Globulin 3.1 Albumin/Globulin Ratio 1.3 Lipase 24 - Rads (name of study) chest xray Relevant Findings:: Prelim report reviewed (hyperinflation without acute findings. ), EMP independent interpretation of test duplex legs Relevant Findings:: Prelim report reviewed (no DVT), EMP independent interpretation of test PD Medical Decision Making - ED course Complexity details: reviewed results (enlarged lungs without infiltrates. Negative US of legs; no DVT. BNP minimal. Not appearing CHF. Creatinine 0.5 so not renal failure. Can try diuretic short term but mmostly elevate/wraps/socks. ), re-evaluated patient (improved with neb treatment in ER. Has MDIs at home. ), considered differential (bilateral leg edema. Seems likely dependent edema as not other symptoms for CHF. Can check labs, xray and get US of legs to ensure not worse process. Dyspnea and cough with COPD - add steroids and abx per chest guidlines. ), d/w patient Departure - Departure Disposition: Home, Self Care Clinical Impression: Dyspnea, Alpha 1-antitrypsin PiMS phenotype, Bilateral leg edema, Acute exacerbation of emphysema Condition: Stable Record reviewed to determine appropriate education?: Yes Follow-Up: Shine Carmichael [Primary Care Provider] - Prescriptions: Amoxicillin 500 mg PO TID #15 cap dexAMETHasone [Decadron] 4 mg PO DAILY #10 tablet hydroCHLOROthiazide [Hydrodiuril] 25 mg PO DAILY #10 tablet Comments: Regarding the swelling in your legs, your ultrasound is negative so no signs of blood clots. Your chest x-ray does not show any signs of fluid congestion or heart failure. Your blood tests do not show any signs of heart failure nor renal failure. Electrolytes are good. It looks to be localized dependent edema in treated largely with elevation of the legs often and some mild compressive socks. It does not need to be the really tight compression hose but just some knee-high mild compression socks. We can try mild diuretic/water pill for 7 to 10 days and see if that helps as well but it does not look like you are fluid overloaded per se. Regarding your breathing, continue with your inhaler regularly. Add Decadron steroid daily as prescribed. Also amoxicillin antibiotic 3 times a day as prescribed for concern of bronchial infection. Recheck if not improving well over the next few days return if worse. Follow-up with your primary care. I sent your prescriptions to the [facility] pharmacy. Forms: PCP List Discharge Date/Time: 04/06/23 15:52
--- NOTE | 2023-04-06 13:09 | XRAY Report ---
PROCEDURE: Chest 2 View X-Ray INDICATIONS: SOB TECHNIQUE: 2 views of the chest were obtained. COMPARISON: None. FINDINGS: Surgical changes and devices: None. Lungs and pleura: No pleural effusions or pneumothorax. Lungs are clear. Hyperinflation. Mediastinum: Mediastinal contours appear normal. Heart size is normal. Bones and chest wall: No suspicious bony lesions. Overlying soft tissues appear unremarkable. IMPRESSION: Pulmonary hyperinflation without acute findings. Reviewed by: Pino Hutchinson MD on 04/06/2023 12:08 PM [facility] Approved by: Pino Hutchinson MD on 04/06/2023 12:08 PM [facility] Station ID: [id number]
[2023-04-06] MEDS ORDERED: IPRATROPIUM/ALBUTEROL 3 ML NEB INH STA (13:19)
[2023-04-06] MEDS ORDERED: DEXAMETHASONE 10 MG/ML VIAL IVP STA (13:21)
[2023-04-06 13:36] LABS: BASOPHILS % (AUTO) 0.8 %; EOSINOPHILS # (AUTO) 0.1 10^3/uL (0.0-0.7); EOSINOPHILS % (AUTO) 2.1 %; HCT - HEMATOCRIT 42.7 % (37.0-47.0); HGB - HEMOGLOBIN 13.3 g/dL (12.0-16.0); LYMPHOCYTES # (AUTO) 0.5 10^3/uL (1.5-3.5); LYMPHOCYTES % (AUTO) 12.9 %; MEAN CORPUSCULAR HEMOGLOBIN 31.9 pg (27.0-31.0); MEAN CORPUSCULAR HGB CONC 31.1 g/dL (32.0-36.0); MEAN CORPUSCULAR VOLUME 102.4 fL (81.0-99.0); MEAN PLATELET VOLUME 8.9 fL (7.9-10.8); MONOCYTES # (AUTO) 0.3 10^3/uL (0.0-1.0); MONOCYTES % (AUTO) 8.2 %; NEUTROPHILS % (AUTO) 75.7 %; PLT - PLATELET COUNT 242 10^3/uL (130-450); RED BLOOD COUNT 4.17 10^6/uL (4.20-5.40); WHITE BLOOD COUNT 3.9 x10^3/uL (4.8-10.8)
[2023-04-06 13:51] LABS: ALBUMIN 3.9 g/dL (3.2-5.5); MAGNESIUM 1.7 mg/dL (1.7-2.3)
[2023-04-06 13:54] LABS: ALBUMIN/GLOBULIN RATIO 1.3 (1.0-2.2); BILIRUBIN,TOTAL 0.5 mg/dL (0.2-1.0); CALCIUM 9.6 mg/dL (8.5-10.3); CREATININE 0.5 mg/dL (0.6-1.3); POTASSIUM 5.3 mmol/L (3.5-4.5)
[2023-04-06 14:34] VITALS: O2SAT 95
[2023-04-06 15:12] VITALS: BP 156/96
--- NOTE | 2023-04-06 15:46 | Ultrasound Report ---
PROCEDURE: Duplex Ext Veins Bilateral INDICATIONS: Bilateral leg swelling. TECHNIQUE: Real-time imaging, as well as color and pulse Doppler interrogation, were performed of the deep veins of both legs from the inguinal ligament to the popliteal fossa. Attempted visualization of the calf veins was performed. COMPARISON: None. FINDINGS: The deep veins are normally compressible, and free of intraluminal thrombus. Color and pu lse Doppler demonstrate normal phasic intravascular flow. There is normal augmentation response to d istal compression maneuver. Right Thurman's cyst measuring 5 cm. Left Thurman's cyst measuring 2.1 cm. IMPRESSION: No deep venous thrombosis of the visualized lower extremities. Bilateral Thurman's cysts. Reviewed by: Harsh Zamorano MD on 04/06/2023 3:45 PM PDT Approved by: Harsh Zamorano MD on 04/06/2023 3:45 PM PDT Station ID: [id number]
== END 2023-04-06 15:52 | disposition home or self-care (01) ==
LOC: ED 12:22
DX: J44.9 Chronic obstructive pulmonary disease, unspecified (principal); J43.9 Emphysema, unspecified; E88.01 Alpha-1-antitrypsin deficiency; R60.0 Localized edema; Z79.899 Other long term (current) drug therapy; Z79.51 Long term (current) use of inhaled steroids
CPT/HCPCS: 36415; 80053; 83690; 83735; 83880; 85025; 93970; 94640; 96374; 99284